=== PATIENT | female | born 1955 | race Caucasian/White ===

== ENCOUNTER → 2018-04-15 | Outpatient (CLI) | payer BC, OTHER ==
[~2018-04-15] MED LIST: ATOR10TA9 PO; CITA20TA6 PO; LEVO25TA4 PO; MELO15TA24 PO; METF500T5 PO; MULT-658 PO; OMEP-110 PO; VIT1CAPS9 PO
[2018-04-15 13:06] LABS: ALANINE AMINOTRANSFERASE 47 U/L (12-78); ALBUMIN 4.1 g/dL (3.4-5.0); ANION GAP 6 mmol/L (5-15); CALCIUM 8.8 mg/dL (8.5-10.1); CHLORIDE 111 mmol/L (98-107)
[2018-04-15 13:08] LABS: ALKALINE PHOSPHATASE 81 U/L (45-117)
== END | disposition home or self-care (01) ==
LOC: STAR 11:41
PROVIDERS: ATTEND Surgery
DX: Z01.818 Encounter for other preprocedural examination (principal)
CPT/HCPCS: 36415; 80053; 93005

== ENCOUNTER 2018-04-22 10:45 | Observation (INO) | payer BC, OTHER ==
[~2018-04-22] VITALS: Ht 170.2 cm; Wt 83.1 kg
[2018-04-22] MEDS ORDERED: LACTATED RINGERS 1,000 ML IV SCH ×2 (11:03→20:00)
[2018-04-22 11:09] VITALS: BP 132/76
[2018-04-22] MEDS ORDERED: DEXTROSE 50%, 50ML SYRINGE ONE (11:40)
[2018-04-22] MEDS ORDERED: DEXTROSE 50%, 50ML SYRINGE IVPush PRN (12:00)
[2018-04-22] MEDS ORDERED: OXYcodone IR 5MG TABLET PO ONE (14:00)
[2018-04-22] MEDS ORDERED: SCOPOLAMINE PATCH, 1.5MG PATCH.TD72 TD ONE (14:00)
[2018-04-22] MEDS ORDERED: GABAPENTIN 300 MG CAPSULE PO ONE (14:00)
[2018-04-22] MEDS ORDERED: ONDANSETRON ODT 8 MG PO ONE (14:00)
[2018-04-22] MEDS ORDERED: ACETAMINOPHEN 500 MG TABLET PO ONE (14:00)
[2018-04-22] MEDS ORDERED: MIDAZOLAM 1 MG/ML, 2ML ONE (14:14)
[2018-04-22] MEDS ORDERED: FENTANYL PF 250 MCG/5ML ONE (14:15)
[2018-04-22] MEDS ORDERED: PROPOFOL 10 MG/ML, 20ML ONE (14:16)
[2018-04-22] MEDS ORDERED: WATER-INJECTION,STERILE 10 ML IV ONE (14:16)
[2018-04-22] MEDS ORDERED: BUPIVACAINE/PF-EPI 0.5% 1:200K ONE (14:16)
[2018-04-22] MEDS ORDERED: CEFAZOLIN 1,000 MG ONE ×2 (14:16)
[2018-04-22] MEDS ORDERED: NEOSTIGMINE 1 MG/ML, 10ML ONE (14:18)
[2018-04-22] MEDS ORDERED: ROCURONIUM 10MG/ML,5ML ONE (14:18)
[2018-04-22] MEDS ORDERED: GLYCOPYRROLATE 0.4 MG/2 ML, 2ML ONE (14:18)
[2018-04-22] MEDS ORDERED: LIDOCAINE/PF 1%, 30ML ONE (14:30)
[2018-04-22] MEDS ORDERED: ISOSULFAN BLUE 10 MG/ML, 5ML IV ONE (14:31)
[2018-04-22] MEDS ORDERED: ONDANSETRON 2MG/ML, 2ML IV PRN (15:30)
[2018-04-22] MEDS ORDERED: hydrALAzine 20 MG/ML, 1ML IV PRN (15:30)
[2018-04-22] MEDS ORDERED: MEPERIDINE/PF 25MG/0.5ML IVPush PRN (15:30)
[2018-04-22] MEDS ORDERED: PROMETHAZINE 25 MG SUPP PR PRN (15:30)
[2018-04-22] MEDS ORDERED: MORPHINE SULFATE 4 MG/ML, 1ML IVPush PRN (15:30)
[2018-04-22] MEDS ORDERED: LABETALOL 5MG/ML, 20ML IV PRN (15:30)
[2018-04-22] MEDS ORDERED: FENTANYL PF 100 MCG/2ML IV PRN (15:30)
[2018-04-22] MEDS ORDERED: PROMETHAZINE 12.5 MG SUPP PR PRN (15:30)
[2018-04-22] MEDS ORDERED: PROMETHAZINE 25 MG/ML, 1ML IV PRN (15:30)
[2018-04-22] MEDS ORDERED: HYDROmorphone 1 MG/ML, 1ML IV PRN (15:30)
[2018-04-22] MEDS ORDERED: OXYcodone 5 MG/5 ML ORAL.SOL UDC PO PRN ×2 (15:30→20:00)
[2018-04-22] MEDS ORDERED: ONDANSETRON ODT 8 MG PO PRN (15:30)
[2018-04-22] MEDS ORDERED: HYDROmorphone 2 MG/ML, 1ML IVPush PRN (20:00)
[2018-04-22] MEDS ORDERED: ONDANSETRON 2MG/ML, 2ML IVPush PRN (20:00)
[2018-04-22] MEDS ORDERED: DIPHENHYDRAMINE 50 MG/ML, 1ML IVPush PRN (20:00)
[2018-04-23 03:55] VITALS: BP 95/58
[2018-04-23] MEDS ORDERED: metFORMIN 500 MG TABLET PO SCH (08:00)
== END 2018-04-23 08:57 | disposition home or self-care (01) ==
LOC: OUT 10:45 → EDSTATUS 15:30 → 4NOR 19:05 → OUT 22:50 → 4NOR 22:51
PROVIDERS: ADMIT Surgery; ATTEND Surgery
DX: C43.62 Malignant melanoma of left upper limb, including shoulder (principal); E78.5 Hyperlipidemia, unspecified
CPT/HCPCS: 38525; 78195; 82962; 88307; 88331; A9541; C1760; C9898; G0378; J0690; J2250; J2704; J3010; J7120; Q0162; 88341; 88342; J2710; J3490; G0461